=== PATIENT | male | born 1935 | race Caucasian/White ===

== ENCOUNTER 2017-10-04 16:46 | Inpatient (IN) | payer MEDICARE ==
[~2017-10-04] VITALS: Ht 172.7 cm; Wt 75.3 kg
[~2017-10-04 16:46] MED LIST: ACET-2178; ASPI-518; DILT30TA38; DOCU-138; FERR-63; INSLIS; INSU100C11; LISI-186; LOVA20TA2; OMEP40CA34; SITA50TA3
[2017-10-04] MEDS ORDERED: VANCOMYCIN 1 G PREMIX 200 ML IV ONE (17:15)
[2017-10-04] MEDS ORDERED: SODIUM CHLORIDE 0.9% 1000ML BAG (SEPSIS BOLUS) IV ONE (17:15)
[2017-10-04] MEDS ORDERED: PIPERACILLIN/TAZ 3.375G PREMIX 50 ML IV ONE (17:15)
[2017-10-04] MEDS ORDERED: ACETAMINOPHEN 650MG SUPP PR ONE (17:15)
[2017-10-04 17:16] LABS: HEMATOCRIT. 30.2 % (42.0-52.0); HEMOGLOBIN. 9.6 g/dL (14.0-18.0); MEAN CORPUSCULAR HEMOGLOBIN 30.7 pg (28.0-32.0); MEAN CORPUSCULAR VOLUME 97.1 fL (80.0-94.0); MEAN PLATELET VOLUME 12.2 fl (7.4-10.4); PLATELET 123 x1000/uL (130-400); RED BLOOD CELL COUNT 3.11 mill/uL (4.7-6.1); RED CELL DISTRIBUTION WIDTH 20.9 % (11.6-14.6)
[2017-10-04 17:22] LABS: CHLORIDE 110 mEq/L (98-107)
[2017-10-04 17:24] LABS: INR 1.4; PARTIAL THROMBOPLASTIN TIME 27.1 sec (23.4-31.0)
[2017-10-04 17:25] LABS: BG BASE EXCESS 4.9 mmol/L (-2.0-2.0); BG CARBOXYHEMOGLOBIN 0.4 % (0.5-1.5); BG DEOXYHEMOGLOBIN 4.5 % (0.0-5.0); BG HCO3 ACT 28.3 mmol/L (22.0-26.0); BG METHEMOGLOBIN 0.2 % (0.0-1.5); BG OXYGEN SATURATION 95.5 % (92.0-98.5); BG OXYHEMOGLOBIN 94.9 % (94.0-97.0); BG PCO2 37.3 mmHg (35.0-45.0); BG PH 7.498 (7.350-7.450); BG PO2 78.1 mmHg (75.0-100.0); BG SAMPLE SITE RIGHT RADIAL; BG TOTAL HEMOGLOBIN 9.6 g/dL (12.0-18.0); BG VENT MODE MASK - NRB
[2017-10-04 17:31] LABS: CLARITY URINE CLOUDY (CLEAR); COLOR URINE YELLOW (YELLOW); KETONES URINE NEGATIVE (NEGATIVE); LEUKOCYTE ESTERASE URINE 3+ (NEGATIVE); NITRITE URINE NEGATIVE (NEGATIVE); OCCULT BLOOD URINE 1+ (NEGATIVE); PH URINE 5.5 (4.5-8.0); PROTEIN URINE 3+ (NEGATIVE); SPECIFIC GRAVITY URINE 1.014 (1.005-1.030); UROBILINOGEN URINE 0.2 E.U./dL (0.2-1.0)
[2017-10-04 18:35] LABS: PLATELET ESTIMATE DECREASED
[2017-10-04] MEDS ORDERED: ASPIRIN 300MG SUPP PR ONE ×2 (19:00→20:00)
[2017-10-04 23:50] VITALS: BP 114/51
[2017-10-05] VITALS: BP 114/51
[2017-10-05] MEDS ORDERED: DEXTROSE 50% WATER 50ML SYRINGE IV PRN (01:15)
[2017-10-05] MEDS ORDERED: PIPERACILLIN/TAZ 3.375G PREMIX 50 ML IV SCH (01:15)
[2017-10-05 04:00] VITALS: BP 104/43
[2017-10-05] MEDS: DEXT 5% WATER + KCL 20MEQ/L 1,000 ML IV SCH ×2 (04:18→18:08)
[2017-10-05] MEDS: PIPERACILLIN/TAZ 3.375G PREMIX 50 ML IV SCH ×3 (04:19→20:01)
[2017-10-05] MEDS ORDERED: VANCOMYCIN 1 G PREMIX 200 ML IV SCH (06:00)
[2017-10-05] MEDS: BLOOD SUGAR DIAGNOSTIC STRIP TEST SCH ×4 (07:02→20:05)
[2017-10-05 08:00] VITALS: BP 110/52
[2017-10-05] MEDS: PANTOPRAZOLE SODIUM 40 MG/VIAL IV SCH (08:03)
[2017-10-05] MEDS: ENOXAPARIN 30MG/0.3ML SYR SUBCUT SCH (08:04)
[2017-10-05] MEDS: TAMSULOSIN HCL 0.4MG SR CAPSULE PO SCH (08:04)
[2017-10-05] MEDS: INSULIN LISPRO 100 UNITS/ML SUBCUT SCH ×4 (08:06→20:09)
[2017-10-05 12:00] VITALS: BP 93/35
[2017-10-05 12:38] LABS: BG BASE EXCESS -0.7 mmol/L (-2.0-2.0); BG CARBOXYHEMOGLOBIN 0.9 % (0.5-1.5); BG DEOXYHEMOGLOBIN 11.3 % (0.0-5.0); BG FRACTION INSPIRED OXYGEN 32; BG HCO3 ACT 22.2 mmol/L (22.0-26.0); BG METHEMOGLOBIN 0.2 % (0.0-1.5); BG OXYGEN SATURATION 88.6 % (92.0-98.5); BG OXYHEMOGLOBIN 87.6 % (94.0-97.0); BG PCO2 30.2 mmHg (35.0-45.0); BG PH 7.484 (7.350-7.450); BG PO2 53.4 mmHg (75.0-100.0); BG SAMPLE SITE RIGHT RADIAL; BG TOTAL HEMOGLOBIN 9.4 g/dL (12.0-18.0); BG VENT MODE NASAL CANNULA
[2017-10-05 16:00] VITALS: BP 87/39
[2017-10-05 20:00] VITALS: BP 105/45
[2017-10-06] VITALS: BP 100/39
[2017-10-06] MEDS: PIPERACILLIN/TAZ 3.375G PREMIX 50 ML IV SCH ×3 (04:02→21:25)
[2017-10-06 05:00] VITALS: BP 96/37
[2017-10-06] MEDS: DEXT 5% WATER + KCL 20MEQ/L 1,000 ML IV SCH (05:48)
[2017-10-06] MEDS: BLOOD SUGAR DIAGNOSTIC STRIP TEST SCH ×4 (06:38→21:25)
[2017-10-06 06:46] LABS: HEMOGLOBIN. 8.5 g/dL (14.0-18.0); MEAN CORPUSCULAR HEMOGLOBIN 30.7 pg (28.0-32.0); MEAN CORPUSCULAR VOLUME 96.9 fL (80.0-94.0); MEAN PLATELET VOLUME 13.1 fl (7.4-10.4); PLATELET 92 x1000/uL (130-400); RED BLOOD CELL COUNT 2.78 mill/uL (4.7-6.1); RED CELL DISTRIBUTION WIDTH 20.4 % (11.6-14.6)
[2017-10-06 07:11] LABS: PHOSPHORUS 2.2 mg/dL (2.5-4.9)
[2017-10-06 08:00] VITALS: BP 104/34
[2017-10-06] MEDS: TAMSULOSIN HCL 0.4MG SR CAPSULE PO SCH (08:33)
[2017-10-06] MEDS: PANTOPRAZOLE SODIUM 40 MG/VIAL IV SCH (08:33)
[2017-10-06] MEDS: ENOXAPARIN 30MG/0.3ML SYR SUBCUT SCH (08:34)
[2017-10-06] MEDS: INSULIN LISPRO 100 UNITS/ML SUBCUT SCH ×4 (08:42→23:26)
[2017-10-06] MEDS: DEXT 5% IV SCH (15:55)
[2017-10-06] MEDS: SULFAMETHOXAZOLE IV SCH (15:55)
[2017-10-06] MEDS: WATER IV SCH (15:55)
[2017-10-06] MEDS: TRIMETHOPRIM IV SCH (15:55)
[2017-10-06] MEDS ORDERED: VANCOMYCIN 1 G PREMIX 200 ML IV SCH (18:00)
[2017-10-06 20:00] VITALS: BP 97/32
[2017-10-06 21:14] LABS: PLATELET ESTIMATE DECREASED
[2017-10-07] VITALS: BP 104/35
[2017-10-07] MEDS: TRIMETHOPRIM IV SCH ×2 (01:50→14:00)
[2017-10-07] MEDS: WATER IV SCH ×2 (01:50→14:00)
[2017-10-07] MEDS: SULFAMETHOXAZOLE IV SCH ×2 (01:50→14:00)
[2017-10-07] MEDS: DEXT 5% IV SCH ×2 (01:50→14:00)
[2017-10-07 04:00] VITALS: BP 123/35
[2017-10-07] MEDS: PIPERACILLIN/TAZ 3.375G PREMIX 50 ML IV SCH ×3 (05:47→20:32)
[2017-10-07] MEDS: DEXT 5% WATER + KCL 20MEQ/L 1,000 ML IV SCH ×2 (05:47→08:33)
[2017-10-07] MEDS: BLOOD SUGAR DIAGNOSTIC STRIP TEST SCH ×4 (06:53→21:00)
[2017-10-07] MEDS: INSULIN LISPRO 100 UNITS/ML SUBCUT SCH ×4 (06:59→23:06)
[2017-10-07 08:00] VITALS: BP 85/44
[2017-10-07] MEDS: PANTOPRAZOLE SODIUM 40 MG/VIAL IV SCH (08:32)
[2017-10-07] MEDS: ENOXAPARIN 30MG/0.3ML SYR SUBCUT SCH (08:33)
[2017-10-07] MEDS: TAMSULOSIN HCL 0.4MG SR CAPSULE PO SCH (08:44)
[2017-10-07] MEDS ORDERED: SODIUM CHLORIDE 0.9% 250 ML IV SCH (10:00)
[2017-10-07] MEDS ORDERED: SODIUM CHLORIDE 0.9% 1000ML BAG (SEPSIS BOLUS) IV ONE (11:45)
[2017-10-07 12:00] VITALS: BP 67/41
[2017-10-07 12:51] LABS: HEMATOCRIT. 28.4 % (42.0-52.0); MEAN CORPUSCULAR HEMOGLOBIN 30.8 pg (28.0-32.0); MEAN PLATELET VOLUME 12.7 fl (7.4-10.4); PLATELET 91 x1000/uL (130-400); RED BLOOD CELL COUNT 2.93 mill/uL (4.7-6.1); RED CELL DISTRIBUTION WIDTH 21.1 % (11.6-14.6)
[2017-10-07 13:11] LABS: PLATELET ESTIMATE SLIGHTLY DECREASED
[2017-10-07 16:00] VITALS: BP 101/14
[2017-10-07 16:52] LABS: BG BASE EXCESS -1.8 mmol/L (-2.0-2.0); BG CARBOXYHEMOGLOBIN 0.3 % (0.5-1.5); BG DEOXYHEMOGLOBIN 10.9 % (0.0-5.0); BG FRACTION INSPIRED OXYGEN 100; BG HCO3 ACT 21.6 mmol/L (22.0-26.0); BG METHEMOGLOBIN 0.2 % (0.0-1.5); BG OXYHEMOGLOBIN 88.6 % (94.0-97.0); BG PCO2 31.6 mmHg (35.0-45.0); BG PH 7.453 (7.350-7.450); BG PO2 58.1 mmHg (75.0-100.0); BG SAMPLE SITE RIGHT RADIAL; BG TOTAL HEMOGLOBIN 9.4 g/dL (12.0-18.0); BG VENT MODE MASK - NRB
[2017-10-07] MEDS ORDERED: SODIUM PHOS,M-BASIC-D-BASIC 20 MM in DEXT 5% WATER 243.3333 ML IV NR (18:00)
[2017-10-07] MEDS ORDERED: SODIUM CHLORIDE 0.9% 500 ML IV NR (19:45)
[2017-10-07 20:00] VITALS: BP 113/37
[2017-10-07] MEDS ORDERED: INSULIN GLARGINE UD 100 UNITS/ML SYR SUBCUT SCH (22:00)
[2017-10-08] VITALS: BP 108/26
[2017-10-08] MEDS: DEXT 5% WATER + KCL 20MEQ/L 1,000 ML IV SCH ×2 (01:49→12:00)
[2017-10-08] MEDS: TRIMETHOPRIM IV SCH ×2 (01:50→13:31)
[2017-10-08] MEDS: SULFAMETHOXAZOLE IV SCH ×2 (01:50→13:31)
[2017-10-08] MEDS: DEXT 5% IV SCH ×2 (01:50→13:31)
[2017-10-08] MEDS: WATER IV SCH ×2 (01:50→13:31)
[2017-10-08 04:00] VITALS: BP 99/32
[2017-10-08] MEDS: PIPERACILLIN/TAZ 3.375G PREMIX 50 ML IV SCH ×3 (06:10→21:30)
[2017-10-08] MEDS: BLOOD SUGAR DIAGNOSTIC STRIP TEST SCH ×4 (07:40→21:46)
[2017-10-08 08:00] VITALS: BP 99/35
[2017-10-08] MEDS: PANTOPRAZOLE SODIUM 40 MG/VIAL IV SCH (08:08)
[2017-10-08] MEDS: INSULIN LISPRO 100 UNITS/ML SUBCUT SCH ×4 (08:09→21:33)
[2017-10-08] MEDS ORDERED: LIDOCAINE HCL 1% 20ML VIAL (Pyxis) INJ ONE (08:15)
[2017-10-08 08:42] LABS: BG BASE EXCESS -1.7 mmol/L (-2.0-2.0); BG CARBOXYHEMOGLOBIN 0.9 % (0.5-1.5); BG DEOXYHEMOGLOBIN 10.1 % (0.0-5.0); BG FRACTION INSPIRED OXYGEN 99.8; BG METHEMOGLOBIN 0.3 % (0.0-1.5); BG OXYGEN SATURATION 89.8 % (92.0-98.5); BG OXYHEMOGLOBIN 88.7 % (94.0-97.0); BG PCO2 33.1 mmHg (35.0-45.0); BG PH 7.441 (7.350-7.450); BG SAMPLE SITE RIGHT RADIAL; BG TOTAL HEMOGLOBIN 8.3 g/dL (12.0-18.0); BG VENT MODE MASK - NRB
[2017-10-08] MEDS: ENOXAPARIN 30MG/0.3ML SYR SUBCUT SCH (09:00)
[2017-10-08] MEDS: TAMSULOSIN HCL 0.4MG SR CAPSULE PO SCH (09:00)
[2017-10-08 12:14] LABS: HEMATOCRIT. 25.5 % (42.0-52.0); MEAN CORPUSCULAR HEMOGLOBIN 30.8 pg (28.0-32.0); MEAN PLATELET VOLUME 12.6 fl (7.4-10.4); PLATELET 94 x1000/uL (130-400); RED CELL DISTRIBUTION WIDTH 21.1 % (11.6-14.6)
[2017-10-08 12:39] LABS: PHOSPHORUS 2.6 mg/dL (2.5-4.9)
[2017-10-08 13:39] LABS: PLATELET ESTIMATE DECREASED
[2017-10-08 20:00] VITALS: BP 100/41
[2017-10-08] MEDS ORDERED: INSULIN GLARGINE UD 100 UNITS/ML SYR SUBCUT SCH (22:00)
[2017-10-09] VITALS: BP 95/40
[2017-10-09] MEDS: DEXT 5% IV SCH ×2 (05:35→13:59)
[2017-10-09] MEDS: WATER IV SCH ×2 (05:35→13:59)
[2017-10-09] MEDS: SULFAMETHOXAZOLE IV SCH ×2 (05:35→13:59)
[2017-10-09] MEDS: TRIMETHOPRIM IV SCH ×2 (05:35→13:59)
[2017-10-09] MEDS: DEXT 5% WATER + KCL 20MEQ/L 1,000 ML IV SCH (05:35)
[2017-10-09 07:10] LABS: HEMATOCRIT. 24.9 % (42.0-52.0); MEAN CORPUSCULAR HEMOGLOBIN 31.3 pg (28.0-32.0); MEAN PLATELET VOLUME 12.8 fl (7.4-10.4); PLATELET 87 x1000/uL (130-400); RED BLOOD CELL COUNT 2.55 mill/uL (4.7-6.1); RED CELL DISTRIBUTION WIDTH 20.9 % (11.6-14.6)
[2017-10-09] MEDS: PIPERACILLIN/TAZ 3.375G PREMIX 50 ML IV SCH ×2 (07:23→12:50)
[2017-10-09] MEDS: INSULIN LISPRO 100 UNITS/ML SUBCUT SCH ×4 (07:27→22:33)
[2017-10-09] MEDS: BLOOD SUGAR DIAGNOSTIC STRIP TEST SCH ×4 (07:29→21:53)
[2017-10-09 07:40] LABS: PHOSPHORUS 2.8 mg/dL (2.5-4.9)
[2017-10-09 08:00] VITALS: BP 87/39
[2017-10-09] MEDS: PANTOPRAZOLE SODIUM 40 MG/VIAL IV SCH (08:35)
[2017-10-09] MEDS: ENOXAPARIN 30MG/0.3ML SYR SUBCUT SCH (08:36)
[2017-10-09] MEDS: TAMSULOSIN HCL 0.4MG SR CAPSULE PO SCH (08:36)
[2017-10-09] MEDS ORDERED: VANCOMYCIN 1 G PREMIX 200 ML IV NR (09:00)
[2017-10-09 10:43] LABS: PLATELET ESTIMATE DECREASED
[2017-10-09 16:00] VITALS: BP 89/39
[2017-10-09] MEDS: PIPERACILLIN/TAZ 2.25G PREMIX 50 ML IV SCH (18:44)
[2017-10-09 20:00] VITALS: BP 114/54
[2017-10-09] MEDS ORDERED: INSULIN GLARGINE UD 100 UNITS/ML SYR SUBCUT SCH (22:00)
[2017-10-10] VITALS: BP 115/56
[2017-10-10] MEDS: PIPERACILLIN/TAZ 2.25G PREMIX 50 ML IV SCH (00:56)
== END 2017-10-10 04:20 | disposition expired | DRG 871 ==
LOC: ER 16:49 → 6EST 19:40 → ENRESERV 23:07
PROVIDERS: ADMIT Internal Medicine Pulmonary Disease; ATTEND Internal Medicine Pulmonary Disease
PROC: 5A09557 Assistance with Respiratory Ventilation, Greater than 96 Consecutive Hours, Continuous Positive Airway Pressure (ICD-10-PCS; 2017-10-05)
PROC: 05HY33Z Insertion of Infusion Device into Upper Vein, Percutaneous Approach (ICD-10-PCS; principal; 2017-10-08)
PROC: B54MZZA Ultrasonography of Right Upper Extremity Veins, Guidance (ICD-10-PCS; 2017-10-08)
DX: A41.9 Sepsis, unspecified organism (principal); R65.21 Severe sepsis with septic shock; J69.0 Pneumonitis due to inhalation of food and vomit; R53.2 Functional quadriplegia; J96.91 Respiratory failure, unspecified with hypoxia; N17.9 Acute kidney failure, unspecified; I13.0 Hypertensive heart and chronic kidney disease with heart failure and stage 1 through stage 4 chronic kidney disease, or unspecified chronic kidney disease; L97.929 Non-pressure chronic ulcer of unspecified part of left lower leg with unspecified severity; E87.0 Hyperosmolality and hypernatremia; I48.92 Unspecified atrial flutter; N12 Tubulo-interstitial nephritis, not specified as acute or chronic; D64.9 Anemia, unspecified; E78.00 Pure hypercholesterolemia, unspecified; E78.5 Hyperlipidemia, unspecified; F03.90 Unspecified dementia, unspecified severity, without behavioral disturbance, psychotic disturbance, mood disturbance, and anxiety; I25.10 Atherosclerotic heart disease of native coronary artery without angina pectoris; I48.0 Paroxysmal atrial fibrillation; J44.9 Chronic obstructive pulmonary disease, unspecified; I50.9 Heart failure, unspecified; E11.22 Type 2 diabetes mellitus with diabetic chronic kidney disease; E11.51 Type 2 diabetes mellitus with diabetic peripheral angiopathy without gangrene; N40.0 Benign prostatic hyperplasia without lower urinary tract symptoms; Z16.24 Resistance to multiple antibiotics; E11.622 Type 2 diabetes mellitus with other skin ulcer; N18.3 Chronic kidney disease, stage 3 (moderate); E83.39 Other disorders of phosphorus metabolism; I95.9 Hypotension, unspecified; E11.65 Type 2 diabetes mellitus with hyperglycemia; I25.2 Old myocardial infarction; Z86.73 Personal history of transient ischemic attack (TIA), and cerebral infarction without residual deficits; Z87.891 Personal history of nicotine dependence; Z89.511 Acquired absence of right leg below knee; Z93.1 Gastrostomy status; Z79.899 Other long term (current) drug therapy; Z79.82 Long term (current) use of aspirin
CPT/HCPCS: 36415; 36569; 36600; 51702; 70450; 71045; 76937; 80048; 80053; 80202; 81003; 82375; 82805; 82962; 83605; 83735; 83880; 84100; 84484; 85025; 85610; 85730; 86850; 86900; 87040; 87077; 87086; 87186; 93005; 94660; 96365; 96366; 96368; 99291; C1725; C1769; C9113; J1650; J1815; J2543; J3370; J3490; J7030; J7040; J7060; A4315